=== PATIENT | male | born 1975 | race African-American/Black ===

== ENCOUNTER 2017-05-26 11:05 | Inpatient (IN) | payer MEDICAID ==
[~2017-05-26] VITALS: Ht 185.4 cm; Wt 74.4 kg
[~2017-05-26 11:05] MED LIST: METO25TA6
[2017-05-26] MEDS ORDERED: LORAZEPAM 2MG/ML CPJ IV ONE (12:15)
[2017-05-26 12:28] LABS: BASOPHILS % 1.1 % (0.0-2.0); EOSINOPHILS % 0.5 % (0.0-5.0); HEMATOCRIT. 35.2 % (42.0-52.0); HEMOGLOBIN. 11.6 g/dL (14.0-18.0); LYMPHOCYTES % 17.3 % (20.0-50.0); MEAN CORPUSCULAR HEMOGLOBIN 30.8 pg (28.0-32.0); MEAN CORPUSCULAR VOLUME 93.2 fL (80.0-94.0); MEAN PLATELET VOLUME 7.6 fl (7.4-10.4); MONOCYTES % 9.7 % (2.0-8.0); NEUTROPHILS % 71.4 % (40.0-76.0); PLATELET 207 x1000/uL (130-400); RED BLOOD CELL COUNT 3.77 mill/uL (4.7-6.1); RED CELL DISTRIBUTION WIDTH 16.9 % (11.6-14.6)
[2017-05-26 12:41] LABS: AMMONIA 233 uMol/L (<32)
[2017-05-26] MEDS ORDERED: LACTULOSE 20G/30ML UDC PO ONE (12:45)
[2017-05-26 12:46] LABS: CHLORIDE 104 mEq/L (98-107); ETHANOL BLOOD < 10 mg/dL
[2017-05-26 12:48] LABS: CARBON DIOXIDE 10 mEq/L (21-32)
[2017-05-26 13:12] LABS: CLARITY URINE CLEAR (CLEAR); COLOR URINE YELLOW (YELLOW); GLUCOSE URINE NEGATIVE (NEGATIVE); KETONES URINE NEGATIVE (NEGATIVE); LEUKOCYTE ESTERASE URINE NEGATIVE (NEGATIVE); NITRITE URINE NEGATIVE (NEGATIVE); OCCULT BLOOD URINE 1+ (NEGATIVE); PROTEIN URINE 2+ (NEGATIVE); SPECIFIC GRAVITY URINE 1.012 (1.005-1.030); UROBILINOGEN URINE 0.2 E.U./dL (0.2-1.0)
[2017-05-26 13:45] LABS: *AMPHETAMINES SCREEN URINE NEGATIVE (NEGATIVE); *BARBITURATES SCREEN URINE NEGATIVE (NEGATIVE); *BENZODIAZEPINES SCREEN URINE NEGATIVE (NEGATIVE); *COCAINE SCREEN URINE NEGATIVE (NEGATIVE); CANNABINOID URINE SCREEN PRESUMTIVE POSITIVE (NEGATIVE); METHADONE URINE SCREEN NEGATIVE (NEGATIVE); OPIATES URINE SCREEN NEGATIVE (NEGATIVE); PHENCYCLIDINE URINE SCREEN NEGATIVE (NEGATIVE)
[2017-05-26 14:18] LABS: BG BASE EXCESS -6.8 mmol/L (-2.0-2.0); BG CARBOXYHEMOGLOBIN 0.3 % (0.5-1.5); BG DEOXYHEMOGLOBIN 5.5 % (0.0-5.0); BG FRACTION INSPIRED OXYGEN 21; BG HCO3 ACT 17.5 mmol/L (22.0-26.0); BG METHEMOGLOBIN 0.3 % (0.0-1.5); BG OXYGEN SATURATION 94.5 % (92.0-98.5); BG OXYHEMOGLOBIN 93.9 % (94.0-97.0); BG PCO2 31.3 mmHg (35.0-45.0); BG PH 7.366 (7.350-7.450); BG PO2 83.9 mmHg (75.0-100.0); BG SAMPLE SITE RIGHT BRACHIAL; BG TOTAL HEMOGLOBIN 11.1 g/dL (12.0-18.0); BG VENT MODE ROOM AIR
[2017-05-26 16:00] VITALS: BP 147/95
[2017-05-26 17:27] VITALS: BP 147/95
[2017-05-26] MEDS ORDERED: LORAZEPAM 2MG/ML CPJ IV PRN (18:45)
[2017-05-26] MEDS ORDERED: ACETAMINOPHEN 325MG TABLET PO PRN (18:45)
[2017-05-26] MEDS ORDERED: IPRATROPIUM/ALBUTEROL 0.5-3(2.5)MG/3ML NEB INH PRN (18:45)
[2017-05-26] MEDS ORDERED: DOCUSATE SODIUM 100MG CAPSULE PO PRN (18:45)
[2017-05-26] MEDS ORDERED: ONDANSETRON HCL 4MG/2ML VIAL IV PRN (18:45)
[2017-05-26] MEDS ORDERED: PNEUMOCOCCAL 23-VAL P-SAC VAC 0.5 ML IM ONE (18:45)
[2017-05-26] MEDS ORDERED: MAGNESIUM/ALUMINUM HYDROXIDE/SIMETHICONE 30ML UDC PO PRN (18:45)
[2017-05-26 20:00] VITALS: BP 155/103
[2017-05-26] MEDS: CLONIDINE 0.1MG TABLET PO PRN (20:40)
[2017-05-26] MEDS ORDERED: MVI, ADULT NO.1 10 ML, FOLIC ACID 1 MG, THIAMINE HCL 100 MG in SODIUM CHLORIDE 0.9% 1,0... IV NR ×4 (21:00)
[2017-05-26] MEDS: LEVETIRACETAM 500MG/5ML CUP PO SCH (21:45)
[2017-05-26] MEDS: LACTULOSE 20G/30ML UDC PO SCH (21:45)
[2017-05-26] MEDS: SODIUM CHLORIDE 0.9% 1,000 ML IV SCH (21:47)
[2017-05-26 23:38] LABS: CREATINE KINASE MB FRACTION 1.9 ng/mL (0.5-3.6); TROPONIN I 0.07 ng/mL (0.00-0.04)
[2017-05-27] VITALS: BP 130/80
[2017-05-27 04:00] VITALS: BP 142/89
[2017-05-27] MEDS: LACTULOSE 20G/30ML UDC PO SCH ×3 (06:04→21:48)
[2017-05-27 06:34] LABS: AMMONIA 45 uMol/L (<32)
[2017-05-27] MEDS: SODIUM CHLORIDE 0.9% 1,000 ML IV SCH ×2 (06:36→20:06)
[2017-05-27 06:58] LABS: CARBON DIOXIDE 26 mEq/L (21-32); CHLORIDE 102 mEq/L (98-107); CREATINE KINASE 328 IU/L (39-308); CREATINE KINASE MB FRACTION 1.3 ng/mL (0.5-3.6); HDL CHOLESTEROL 103 mg/dL (40-59); LDL CHOLESTEROL 76 mg/dL (5-100); TROPONIN I 0.04 ng/mL (0.00-0.04)
[2017-05-27 08:00] VITALS: BP 139/92
[2017-05-27 08:09] LABS: EOSINOPHILS % 1.1 % (0.0-5.0); HEMATOCRIT. 32.4 % (42.0-52.0); HEMOGLOBIN. 11.1 g/dL (14.0-18.0); LYMPHOCYTES % 13.8 % (20.0-50.0); MEAN CORPUSCULAR HEMOGLOBIN 30.4 pg (28.0-32.0); MEAN CORPUSCULAR VOLUME 88.4 fL (80.0-94.0); MEAN PLATELET VOLUME 8.1 fl (7.4-10.4); MONOCYTES % 7.1 % (2.0-8.0); PLATELET 179 x1000/uL (130-400); RED BLOOD CELL COUNT 3.67 mill/uL (4.7-6.1); RED CELL DISTRIBUTION WIDTH 16.2 % (11.6-14.6)
[2017-05-27] MEDS: FOLIC ACID 1MG TABLET PO SCH (09:03)
[2017-05-27] MEDS: MULTIVITAMINS,THER W-MINERALS TABLET PO SCH (09:03)
[2017-05-27] MEDS: LEVETIRACETAM 500MG/5ML CUP PO SCH ×2 (09:03→20:05)
[2017-05-27] MEDS: THIAMINE HCL 100MG TABLET PO SCH (09:03)
[2017-05-27 12:00] VITALS: BP 136/70
[2017-05-27] MEDS ORDERED: POTASSIUM CHLORIDE 20MEQ TABLET SR PO NR (13:15)
[2017-05-27 16:00] VITALS: BP 142/98
[2017-05-27 20:00] VITALS: BP 146/99
[2017-05-28] VITALS: BP 157/97
[2017-05-28 04:00] VITALS: BP 150/102
[2017-05-28] MEDS: LACTULOSE 20G/30ML UDC PO SCH ×2 (06:00→13:07)
[2017-05-28 06:40] LABS: BASOPHILS % 1.1 % (0.0-2.0); EOSINOPHILS % 2.4 % (0.0-5.0); HEMATOCRIT. 33.3 % (42.0-52.0); HEMOGLOBIN. 11.3 g/dL (14.0-18.0); LYMPHOCYTES % 19.5 % (20.0-50.0); MEAN CORPUSCULAR HEMOGLOBIN 30.4 pg (28.0-32.0); MEAN CORPUSCULAR VOLUME 89.7 fL (80.0-94.0); MEAN PLATELET VOLUME 8.2 fl (7.4-10.4); MONOCYTES % 7.6 % (2.0-8.0); NEUTROPHILS % 69.4 % (40.0-76.0); PLATELET 171 x1000/uL (130-400); RED BLOOD CELL COUNT 3.71 mill/uL (4.7-6.1); RED CELL DISTRIBUTION WIDTH 16.5 % (11.6-14.6)
[2017-05-28 07:01] LABS: AMMONIA 37 uMol/L (<32)
[2017-05-28 08:00] VITALS: BP 142/95
[2017-05-28 08:30] LABS: CARBON DIOXIDE 24 mEq/L (21-32); CHLORIDE 101 mEq/L (98-107)
[2017-05-28] MEDS: FOLIC ACID 1MG TABLET PO SCH (09:11)
[2017-05-28] MEDS: LEVETIRACETAM 500MG/5ML CUP PO SCH (09:11)
[2017-05-28] MEDS: MULTIVITAMINS,THER W-MINERALS TABLET PO SCH (09:12)
[2017-05-28] MEDS: CLONIDINE 0.1MG TABLET PO PRN (09:12)
[2017-05-28] MEDS: THIAMINE HCL 100MG TABLET PO SCH (09:12)
[2017-05-28] MEDS: SODIUM CHLORIDE 0.9% 1,000 ML IV SCH (09:13)
[2017-05-28 12:00] VITALS: BP 138/64
[2017-05-28 16:08] VITALS: BP 138/62
== END 2017-05-28 17:15 | disposition home or self-care (01) | DRG 53 ==
LOC: ER 11:29 → 5WST 15:42 → ENRESERV 15:52
PROVIDERS: ADMIT Internal Medicine; ATTEND Internal Medicine
DX: G40.909 Epilepsy, unspecified, not intractable, without status epilepticus (principal); E72.20 Disorder of urea cycle metabolism, unspecified; I10 Essential (primary) hypertension; E87.6 Hypokalemia; F12.90 Cannabis use, unspecified, uncomplicated; D64.9 Anemia, unspecified; Z59.0 Homelessness; Z86.73 Personal history of transient ischemic attack (TIA), and cerebral infarction without residual deficits; Z88.8 Allergy status to other drugs, medicaments and biological substances
CPT/HCPCS: 36415; 36600; 70450; 70551; 71010; 80053; 80061; 80305; 81001; 82140; 82375; 82550; 82553; 82805; 83735; 84443; 84484; 85025; 87040; 87086; 93005; 93306; 93970; 96374; 99291; G0482; J2060; J2405; J3411; J3490; J7030; J7620

== ENCOUNTER 2018-01-26 14:17 | Emergency (ER) | payer MEDICAID ==
[~2018-01-26] VITALS: Ht 185.4 cm; Wt 85.0 kg
[2018-01-26 14:35] VITALS: BP 139/88
[2018-01-26] MEDS ORDERED: IBUPROFEN 800MG TABLET PO ONE (16:00)
== END 2018-01-27 06:00 | disposition home or self-care (01) ==
LOC: ER 14:17
DX: S62.304A Unspecified fracture of fourth metacarpal bone, right hand, initial encounter for closed fracture (principal); G40.909 Epilepsy, unspecified, not intractable, without status epilepticus; F12.10 Cannabis abuse, uncomplicated; Z88.8 Allergy status to other drugs, medicaments and biological substances; Z98.890 Other specified postprocedural states; X83.8XXA Intentional self-harm by other specified means, initial encounter; Y93.89 Activity, other specified; Y92.018 Other place in single-family (private) house as the place of occurrence of the external cause
CPT/HCPCS: 29125; 73130; 99284

== ENCOUNTER 2018-03-07 19:05 | Emergency (ER) | payer MEDICAID ==
[~2018-03-07] VITALS: Ht 182.9 cm; Wt 79.0 kg
[2018-03-07 19:34] VITALS: BP 123/75
== END 2018-03-07 22:00 | disposition left against medical advice (07) ==
LOC: ER 21:57
DX: R56.9 Unspecified convulsions (principal); Z53.21 Procedure and treatment not carried out due to patient leaving prior to being seen by health care provider

== ENCOUNTER 2022-03-10 08:32 | Emergency (ER) | payer MEDICAID ==
[~2022-03-10] VITALS: Ht 175.3 cm; Wt 77.5 kg
[2022-03-10] MEDS ORDERED: SODIUM CHLORIDE 0.9% 1,000 ML IV ONE (09:00)
[2022-03-10] MEDS ORDERED: CHLORDIAZEPOXIDE 25MG CAPSULE PO ONE (09:00)
[2022-03-10 09:38] LABS: BASOPHILS % 0.8 % (0.0-2.0); EOSINOPHILS % 0.9 % (0.0-5.0); HEMATOCRIT. 37.3 % (42.0-52.0); HEMOGLOBIN. 12.6 g/dL (14.0-18.0); LYMPHOCYTES % 14.8 % (20.0-50.0); MEAN CORPUSCULAR HEMOGLOBIN 31.2 pg (28.0-32.0); MEAN CORPUSCULAR VOLUME 92.8 fL (80.0-94.0); MEAN PLATELET VOLUME 7.7 fl (7.4-10.4); NEUTROPHILS % 73.5 % (40.0-76.0); PLATELET 238 x1000/uL (130-400); RED BLOOD CELL COUNT 4.02 mill/uL (4.7-6.1); RED CELL DISTRIBUTION WIDTH 16.4 % (11.6-14.6)
[2022-03-10 09:42] LABS: CHLORIDE 97 mEq/L (98-107)
[2022-03-10 09:50] LABS: ETHANOL BLOOD < 10 mg/dL
[2022-03-10] MEDS ORDERED: MIDAZOLAM HCL 2 MG/2 ML VIAL IV ONE (10:30)
[2022-03-10] MEDS ORDERED: CHLORDIAZEPOXIDE 25MG CAPSULE PO NR (11:00)
[2022-03-10 11:01] LABS: CLARITY URINE CLEAR (CLEAR); COLOR URINE YELLOW (YELLOW); KETONES URINE 4+ (NEGATIVE); LEUKOCYTE ESTERASE URINE NEGATIVE (NEGATIVE); NITRITE URINE NEGATIVE (NEGATIVE); OCCULT BLOOD URINE 2+ (NEGATIVE); PH URINE 5.5 (4.5-8.0); PROTEIN URINE 3+ (NEGATIVE); SPECIFIC GRAVITY URINE 1.013 (1.005-1.030)
[2022-03-10 11:18] LABS: *AMPHETAMINES SCREEN URINE NEGATIVE (NEGATIVE); *BARBITURATES SCREEN URINE NEGATIVE (NEGATIVE); *BENZODIAZEPINES SCREEN URINE NEGATIVE (NEGATIVE); *COCAINE SCREEN URINE NEGATIVE (NEGATIVE); CANNABINOID URINE SCREEN NEGATIVE (NEGATIVE); METHADONE URINE SCREEN NEGATIVE (NEGATIVE); OPIATES URINE SCREEN NEGATIVE (NEGATIVE); PHENCYCLIDINE URINE SCREEN NEGATIVE (NEGATIVE)
[2022-03-10] MEDS ORDERED: KEPP500 MT (14:26)
[2022-03-10] MEDS ORDERED: AMLO2.5T2 MT (14:26)
[2022-03-10 15:57] VITALS: BP 136/84
== END 2022-03-10 15:58 | disposition home or self-care (01) ==
LOC: ER 08:42
DX: G40.909 Epilepsy, unspecified, not intractable, without status epilepticus (principal); I16.1 Hypertensive emergency; Z79.899 Other long term (current) drug therapy
CPT/HCPCS: 36415; 70450; 80053; 80305; 80320; 81003; 85025; 96361; 96374; 99285; J2250; J7030; G0480

== ENCOUNTER 2023-05-11 22:49 | Emergency (ER) | payer MEDICAID ==
[~2023-05-11] VITALS: Ht 182.9 cm; Wt 55.0 kg
[~2023-05-11 22:49] MED LIST changes: +AMLO2.5T2 MT; +KEPP500 MT
[2023-05-11 22:57] VITALS: O2SAT 95
[2023-05-12] MEDS ORDERED: SODIUM CHLORIDE 0.9% 1,000 ML IV ONE (00:15)
[2023-05-12 00:28] LABS: BASOPHILS % 0.4 % (0.0-2.0); DIFFERENTIAL COMMENT 0; EOSINOPHILS % 0.3 % (0.0-5.0); HEMATOCRIT. 33.1 % (42.0-52.0); MEAN CORPUSCULAR HEMOGLOBIN 30.5 pg (28.0-32.0); MEAN CORPUSCULAR HGB CONC 33.2 g/dL (31.0-37.0); MEAN CORPUSCULAR VOLUME 91.7 fL (80.0-94.0); MEAN PLATELET VOLUME 8.3 fl (7.4-10.4); MONOCYTES % 5.5 % (2.0-8.0); NEUTROPHILS % 85.8 % (40.0-76.0); PLATELET 91 x1000/uL (130-400); RED BLOOD CELL COUNT 3.61 mill/uL (4.7-6.1); RED CELL DISTRIBUTION WIDTH 19.7 % (11.6-14.6); WHITE BLOOD COUNT 9.2 x1000/uL (4.5-11.0)
[2023-05-12 01:48] LABS: CHLORIDE 102 mEq/L (98-107); INDEX HEMOLYSI 1 (1-3); INDEX ICTERIC 1 (1-4); INDEX LIPEMIC 1 (1-3); SODIUM 142 mEq/L (136-145)
[2023-05-12 01:57] LABS: ALANINE AMINOTRANSFERASE 69 IU/L (13-61); ALBUMIN 3.5 g/dL (3.4-5.0); ASPARTATE AMINOTRANSFERASE 96 IU/L (15-37); BILIRUBIN TOTAL 0.7 mg/dL (0.1-1.0); CALCIUM 8.2 mg/dL (8.5-10.1); CARBON DIOXIDE 27 mEq/L (21-32); CREATININE 0.6 mg/dL (0.6-1.3); GLUCOSE 66 mg/dL (70-105); PROTEIN TOTAL 7.2 g/dL (6.0-8.3); UREA NITROGEN BLOOD 10 mg/dL (7-21)
[2023-05-12] MEDS ORDERED: POTASSIUM CHLORIDE 20MEQ/PACKET PO ONE (02:15)
[2023-05-12 03:25] LABS: ETHANOL BLOOD 429 mg/dL (<10)
[2023-05-12 04:17] VITALS: BP 122/70; PULSE 85; RESP 20; TEMP 98.3
== END 2023-05-12 04:18 | disposition home or self-care (01) ==
LOC: ER 22:55
DX: F10.129 Alcohol abuse with intoxication, unspecified (principal); R53.1 Weakness; M79.605 Pain in left leg; F41.9 Anxiety disorder, unspecified; I10 Essential (primary) hypertension; Y90.8 Blood alcohol level of 240 mg/100 ml or more
CPT/HCPCS: 99283; 80053; 80320; 85025; 36415; J7030; Z7610; G0480